=== PATIENT | female | born 1990 | race Caucasian/White ===

== ENCOUNTER 2020-08-04 17:39 | Emergency (ER) | payer OTHER, SELFPAY ==
[2020-08-04 18:23] VITALS: BP 139/91; PULSE 106; RESP 22; TEMP 36.6; O2SAT 100; BMI 18.8
--- NOTE | 2020-08-04 22:14 | ED_ITS ---
HPI - Chest Pain General Chief Complaint: Chest Pain Stated Complaint: chest pain ,palpitations Time Seen by Provider: 08/04/20 22:07 Source: patient Mode of arrival: ambulatory Limitations: no limitations History of Present Illness HPI narrative: patient comes to emergency room complaining of anxiety. Patient states she had an incident when she was a teenager, then had forgotten about it. Patient states she recently remember what happened, and for the last week she has been having palpitations and shortness of breath, especially at night when she is trying to relax and going to sleep. Patient states when she came in initially to the emergency room she was very anxious, having palpitations and shortness of breath, at this time, patient states that she feels more relaxed. Patient has never been diagnosed with anxiety depression, she is known to have PTSD Related Data Previous Rx's Medication Instructions Recorded hydroxyzine HCl 50 mg PO Q8H PRN #14 tab 08/04/20 Allergies Allergy/AdvReac Type Severity Reaction Status Date / Time shellfish derived Allergy Hives Verified 08/04/20 18:22 Review of Systems Review of Systems: Constitutional : No Weight loss, No Fever, No Chills, No Night Sweats, No Fatigue, No Malaise ENT/Mouth : No Hearing loss, No Ear Pain, No Nasal Congestion, No Sinus Pain, No Hoarseness, No sore throat, No Rhinorrhea, No Swallowing Difficulty Eyes: No Eye Pain, No Swelling, No Redness, No Foreign Body, No Discharge, No Vision Changes Cardiovascular : No Chest Pain, chest pressure with shortness of breath while feeling anxious and palpitations Respiratory : No Cough, No Sputum, No Wheezing, No Smoke Exposure, No Dyspnea Gastrointestinal : No Nausea, No Vomiting, No Diarrhea, No Constipation, No abdominal Pain, No Hematochezia, No Melena Genitourinary : no irregular bleeding, No Dysuria, No Urinary Frequency, No Hematuria, No Urinary Incontinence, No Urgency, No Flank Pain, No Urinary Flow Changes, No Hesitancy Musculoskeletal : No joint pain, No Myalgias, No Joint Swelling Skin : No Skin Lesions, No rash Neuro : No Weakness, No Numbness, No Paresthesias, No Loss of Consciousness, No Dizziness, No Headache Psych : anxiety, no depression or SI or HI Heme/Lymph: No Bruising, No Bleeding,No Lymphadenopathy Endocrine : No Polyuria, No Polydipsia, No Temperature Intolerance [facility] Past Medical History Medical History (Updated 08/04/20 @ 22:26 by Shilpa Ann MD) PTSD (post-traumatic stress disorder) Social History Social History Advance Directives: No Advance Directives Information Provided: Yes Physical Exam Vital Signs: Vital Signs: Last Vital Signs Temp 98 F 08/04/20 18:23 Pulse 106 H 08/04/20 18:23 Resp 22 H 08/04/20 18:23 BP 139/91 H 08/04/20 18:23 Pulse Ox 100 08/04/20 18:23 Body Mass Index 18.8 Appearance: Alert. Oriented X3. No acute distress. Eyes: Pupils equal, round and reactive to light. ENT: Pharynx normal. Neck: Normal inspection. Neck supple. No lymph nodes noted. No crepitus CVS: Normal heart rate and rhythm. Pulses normal. Normal S1 and S2 Respiratory: No respiratory distress. Breath sounds normal. No Wheezing. No rales Abdomen: Soft and nontender. No rigidity. No distention. good BS x4 Skin: Skin warm and dry. Normal skin color. Normal skin turgor. Extremities: No lower extremity edema. No lower extremity edema. No Lacerations . No Rash Neuro: Oriented X 3. No motor deficit. No sensory deficit. Moving all extermities. No slurred speech. Course Course Course Narrative: patient is calm, cooperative, I discussed with the patient starting medication p.r.n. for anxiety, however I discussed with her that he will be a non benzodiazepine medication to avoid addiction. Patient agrees with plan. MDM - Chest Pain ECG Data ECG #1: Attestation: I personally reviewed and interpreted this ECG as follows: ( Sinus tachycardia, heart rate 104, QTC 447, no ST segment depressions or inversions, nonspecific T-wave abnormalities in The inferior leads, no suspicion for acute coronary syndrome) Discharge Plan Discharge Clinical Impression: Anxiety, Post traumatic stress disorder Patient Disposition: Home, Self-Care Instructions: Anxiety (ED) Additional Instructions: Please follow-up with your primary care physician tomorrow. If you have any worsening or new symptoms, please return to the emergency room or call 911 Prescriptions: New hydroxyzine HCl 50 mg tablet 50 mg PO Q8H PRN (Reason: nausea and vomiting) Qty: 14 RF: 0
--- NOTE | 2020-08-04 22:14 | ECG_ITS ---
Test Reason : CHEST PAIN Blood Pressure : / mmHG Vent. Rate : 104 BPM Atrial Rate : 104 BPM P-R Int : 144 ms QRS Dur : 090 ms QT Int : 340 ms P-R-T Axes : 086 066 -39 degrees QTc Int : [address] & T wave abnormality, consider inferior ischemia Abnormal ECG No previous ECGs available Referred By: Shilpa Ann Electronically Signed By:NILES SIMMONS MD
[2020-08-04] MEDS: LORazepam 1 MG TABLET PO (22:49)
[2020-08-04 22:54] VITALS: BP 129/87; PULSE 73; PULSE 75; RESP 16; TEMP 36.6; O2SAT 99
== END 2020-08-04 22:57 | disposition home or self-care (01) ==
PROVIDERS: Emergency Provider Emergency Medicine; PCP Internal Medicine
DX: R07.9 Chest pain, unspecified (principal); R00.2 Palpitations; F41.1 Generalized anxiety disorder; F43.0 Acute stress reaction; Z79.899 Other long term (current) drug therapy
CPT/HCPCS: 93005; 99284